=== PATIENT | female | born 1940 | race Caucasian/White ===

== ENCOUNTER 2020-08-17 20:00 | Inpatient (IN) ==
[2020-08-17 20:56] LABS: Basophils % 0.3 %; Eosinophils # 0.1 K/mcL (0.0-0.6); Eosinophils % 1.5 %; Hematocrit 32.1 % (35.3-44.9); Hemoglobin 10.7 g/dL (11.5-15.4); Immature Granulocytes % 0.6 % (0-4); Immature Platelets 4.4 % (1.1-6.1); Lymphocytes # 1.3 K/mcL (0.6-4.6); Lymphocytes % 18.9 %; Mean Corpuscular HGB Conc 33.3 g/dL (31.6-35.5); Mean Corpuscular Hemoglobin 30.1 pg (28.0-33.3); Mean Corpuscular Volume 90.2 fL (83.0-100.0); Mean Platelet Volume 10.7 fL (9.4-12.4); Monocytes # 0.4 K/mcL (0.0-1.3); Monocytes % 5.6 %; Neutrophils # 4.9 K/mcL (1.6-8.9); Platelet Count 129 K/mcL (140-400); Red Blood Count 3.56 M/mcL (3.82-4.97); Red Cell Distribution Width 15.7 % (11.5-14.5); Segmented Neutrophils % 73.1 %; White Blood Count 6.7 K/mcL (4.3-11.1)
[2020-08-17 21:00] LABS: Activated Partial Thrombo Time 57.9 Seconds (26.0-36.0)
[2020-08-17 21:06] LABS: INR 5.7; Prothrombin Time 63.3 Seconds (9.4-12.1)
[2020-08-17 21:20] LABS: Alanine Aminotransferase 15 Units/L (7-52); Albumin 3.8 g/dL (3.5-5.7); Albumin/Globulin Ratio 1.2 (1.1-2.2); Alkaline Phosphatase 60 Units/L (34-104); Aspartate Amino Transferase 20 Units/L (13-39); BUN/Creatinine Ratio 24 (6-26); Bilirubin,Direct 0.4 mg/dL (0.0-0.2); Bilirubin,Indirect 0.8 mg/dL (0.0-1.0); Bilirubin,Total 1.2 mg/dL (0.3-1.0); Blood Urea Nitrogen 20 mg/dL (8-23); Calcium 9.2 mg/dL (8.6-10.3); Carbon Dioxide 26 mEq/L (23-29); Chloride 102 mEq/L (98-107); Globulin 3.2 g/dL (2.4-3.5); Glucose 100 mg/dL (70-105); Lipase 4 Units/L (11-82); Osmolality,Calculated 291 (280-300); Potassium 3.3 mEq/L (3.5-5.1); Sodium 139 mEq/L (136-145); Troponin I 0.18 ng/mL (< 0.04); eGFR For African Americans > 60 (> 60); eGFR For Non-African Americans > 60 (> 60)
[2020-08-17] MEDS ORDERED: Furosemide 40 MG/4 ML VIAL IVP ONE (21:31)
[2020-08-17] MEDS ORDERED: Ondansetron ODT 4 MG TAB.RAPDIS SL PRN (22:01)
[2020-08-17] MEDS ORDERED: Aspirin 325 MG TABLET PO ONE (22:06)
[2020-08-17] MEDS ORDERED: Perflutren Lipid Microsphere 1.3 ML in 0.9 % Sodium Chloride 8.7 ML IVP PRN (22:11)
[2020-08-17] MEDS ORDERED: Isovue-370 500 ML BOTTLE IVP ONE (23:00)
[2020-08-18] MEDS: Metoprolol XL (24 HR) Succ 25 MG TAB.ER.24H PO SCH ×2 (01:06→09:08)
[2020-08-18 03:43] LABS: Hematocrit 31.7 % (35.3-44.9); Hemoglobin 10.6 g/dL (11.5-15.4); Mean Corpuscular HGB Conc 33.4 g/dL (31.6-35.5); Mean Corpuscular Hemoglobin 30.5 pg (28.0-33.3); Mean Corpuscular Volume 91.1 fL (83.0-100.0); Mean Platelet Volume 10.8 fL (9.4-12.4); Platelet Count 127 K/mcL (140-400); Red Blood Count 3.48 M/mcL (3.82-4.97); Red Cell Distribution Width 15.9 % (11.5-14.5)
[2020-08-18 03:57] LABS: BUN/Creatinine Ratio 24 (6-26); Blood Urea Nitrogen 21 mg/dL (8-23); Calcium 9.4 mg/dL (8.6-10.3); Carbon Dioxide 29 mEq/L (23-29); Chloride 100 mEq/L (98-107); Chol/HDL Ratio 2.6 (0-4.9); Cholesterol 120 mg/dL (< 200); Glucose 93 mg/dL (70-105); HDL Cholesterol 47 mg/dL (40-59); LDL Cholesterol,Calculated 53 mg/dL (< 100); Magnesium 1.4 mg/dL (1.6-2.6); Osmolality,Calculated 289 (280-300); Potassium 3.9 mEq/L (3.5-5.1); Sodium 138 mEq/L (136-145); Triglycerides 98 mg/dL (< 150); eGFR For African Americans > 60 (> 60); eGFR For Non-African Americans > 60 (> 60)
[2020-08-18 04:12] LABS: Prothrombin Time 69.8 Seconds (9.4-12.1)
[2020-08-18 04:13] LABS: INR 6.4
[2020-08-18] MEDS ORDERED: *HR* Phytonadione 10 MG/ML AMPUL SQ ONE (08:12)
[2020-08-18] MEDS: Aspirin 81 MG TAB.CHEW PO SCH (09:08)
[2020-08-18] MEDS: Furosemide 40 MG/4 ML VIAL IVP SCH ×2 (09:09→16:58)
[2020-08-18] MEDS: lisinopriL 20 MG TABLET PO SCH (11:49)
[2020-08-18] MEDS ORDERED: Warfarin perPT PO PRN (18:00)
[2020-08-18] MEDS: Nystatin Cream 15 GM TUBE TP SCH (21:57)
[2020-08-19 00:34] LABS: Bilirubin,Urine Negative (Negative); Blood,Urine Negative (Negative); Clarity,Urine Clear (Clear); Color,Urine Colorless (Yellow); Glucose,Urine (UA) Normal (Normal); Ketones,Urine Negative (Negative); Leukocyte Esterase,Urine Negative (Negative); Nitrite,Urine Negative (Negative); Protein,Urine Negative (Neg-Trace); Specific Gravity,Urine 1.012 (1.010-1.025); Urobilinogen,Urine Normal (Normal)
[2020-08-19 05:52] LABS: Basophils % 0.3 %; Eosinophils # 0.1 K/mcL (0.0-0.6); Eosinophils % 2.1 %; Hematocrit 32.9 % (35.3-44.9); Hemoglobin 10.7 g/dL (11.5-15.4); Immature Granulocytes % 0.3 % (0-4); Lymphocytes # 1.3 K/mcL (0.6-4.6); Lymphocytes % 20.6 %; Mean Corpuscular HGB Conc 32.5 g/dL (31.6-35.5); Mean Corpuscular Hemoglobin 29.7 pg (28.0-33.3); Mean Corpuscular Volume 91.4 fL (83.0-100.0); Mean Platelet Volume 10.7 fL (9.4-12.4); Monocytes # 0.5 K/mcL (0.0-1.3); Monocytes % 7.4 %; Neutrophils # 4.3 K/mcL (1.6-8.9); Platelet Count 130 K/mcL (140-400); Red Cell Distribution Width 16.1 % (11.5-14.5); Segmented Neutrophils % 69.3 %; White Blood Count 6.2 K/mcL (4.3-11.1)
[2020-08-19 06:07] LABS: Prothrombin Time 44.9 Seconds (9.4-12.1)
[2020-08-19 06:17] LABS: Calcium 8.9 mg/dL (8.6-10.3); Magnesium 1.7 mg/dL (1.6-2.6); Potassium 3.5 mEq/L (3.5-5.1)
[2020-08-19] MEDS ORDERED: Magnesium Oxide 400 MG TABLET PO ONE (07:14)
[2020-08-19] MEDS ORDERED: Furosemide 20 MG/2 ML VIAL IVP SCH ×2 (08:57→17:00)
[2020-08-19] MEDS: Metoprolol XL (24 HR) Succ 25 MG TAB.ER.24H PO SCH (09:04)
[2020-08-19] MEDS: lisinopriL 20 MG TABLET PO SCH (09:04)
[2020-08-19] MEDS: Aspirin 81 MG TAB.CHEW PO SCH (09:04)
[2020-08-19 09:22] LABS: Troponin I 4.24 ng/mL (< 0.04)
[2020-08-19] MEDS: Furosemide 40 MG/4 ML VIAL IVP SCH (09:48)
[2020-08-19] MEDS: Levothyroxine 25 MCG TABLET PO SCH (11:04)
[2020-08-19] MEDS: Nystatin Cream 15 GM TUBE TP SCH ×2 (11:04→21:28)
[2020-08-19 17:30] LABS: INR 2.3; Prothrombin Time 25.8 Seconds (9.4-12.1)
[2020-08-20 02:45] LABS: Basophils % 0.4 %; Eosinophils # 0.1 K/mcL (0.0-0.6); Eosinophils % 1.8 %; Hematocrit 32.4 % (35.3-44.9); Hemoglobin 10.4 g/dL (11.5-15.4); Immature Granulocytes % 0.4 % (0-4); Lymphocytes # 0.9 K/mcL (0.6-4.6); Lymphocytes % 17.7 %; Mean Corpuscular HGB Conc 32.1 g/dL (31.6-35.5); Mean Corpuscular Hemoglobin 29.9 pg (28.0-33.3); Mean Corpuscular Volume 93.1 fL (83.0-100.0); Mean Platelet Volume 10.3 fL (9.4-12.4); Monocytes # 0.4 K/mcL (0.0-1.3); Monocytes % 8.5 %; Neutrophils # 3.6 K/mcL (1.6-8.9); Platelet Count 119 K/mcL (140-400); Red Blood Count 3.48 M/mcL (3.82-4.97); Red Cell Distribution Width 16.2 % (11.5-14.5); Segmented Neutrophils % 71.2 %
[2020-08-20 02:54] LABS: INR 1.8; Prothrombin Time 20.2 Seconds (9.4-12.1)
[2020-08-20 03:15] LABS: BUN/Creatinine Ratio 24 (6-26); Blood Urea Nitrogen 25 mg/dL (8-23); Calcium 8.5 mg/dL (8.6-10.3); Carbon Dioxide 35 mEq/L (23-29); Chloride 102 mEq/L (98-107); Glucose 106 mg/dL (70-105); Osmolality,Calculated 301 (280-300); Potassium 3.8 mEq/L (3.5-5.1); Sodium 143 mEq/L (136-145); Troponin I 4.66 ng/mL (< 0.04); eGFR For African Americans > 60 (> 60); eGFR For Non-African Americans 52 (> 60)
[2020-08-20] MEDS: Acetaminophen 325 MG TABLET PO PRN (06:16)
[2020-08-20] MEDS: Levothyroxine 25 MCG TABLET PO SCH (06:17)
[2020-08-20] MEDS: Nystatin Cream 15 GM TUBE TP SCH (09:10)
[2020-08-20] MEDS: Metoprolol XL (24 HR) Succ 25 MG TAB.ER.24H PO SCH (09:10)
[2020-08-20] MEDS: Aspirin 81 MG TAB.CHEW PO SCH (09:10)
[2020-08-20] MEDS: lisinopriL 20 MG TABLET PO SCH (09:10)
[2020-08-20] MEDS: Furosemide 20 MG/2 ML VIAL IVP SCH (09:10)
[2020-08-20] MEDS ORDERED: *HR* Heparin 5,000 UNIT/ML VIAL IVP ONE (10:12)
[2020-08-20] MEDS ORDERED: *HR* Heparin 5,000 UNIT/ML VIAL IVP PRN ×2 (10:12)
[2020-08-20] MEDS: Heparin 25,000UNIT/250ML 1/2NS 25,000 UNIT/250 ML IV.SOLN IVC SCH (10:29)
[2020-08-21] MEDS: Nystatin Cream 15 GM TUBE TP SCH ×3 (06:52→21:04)
[2020-08-21] MEDS: Levothyroxine 25 MCG TABLET PO SCH (06:57)
[2020-08-21 07:47] LABS: Basophils % 0.5 %; Eosinophils # 0.2 K/mcL (0.0-0.6); Eosinophils % 2.9 %; Hematocrit 31.9 % (35.3-44.9); Hemoglobin 10.3 g/dL (11.5-15.4); Immature Granulocytes % 0.2 % (0-4); Lymphocytes # 1.8 K/mcL (0.6-4.6); Lymphocytes % 32.7 %; Mean Corpuscular HGB Conc 32.3 g/dL (31.6-35.5); Mean Corpuscular Hemoglobin 30.5 pg (28.0-33.3); Mean Corpuscular Volume 94.4 fL (83.0-100.0); Mean Platelet Volume 10.6 fL (9.4-12.4); Monocytes # 0.6 K/mcL (0.0-1.3); Platelet Count 126 K/mcL (140-400); Red Blood Count 3.38 M/mcL (3.82-4.97); Red Cell Distribution Width 16.5 % (11.5-14.5); Segmented Neutrophils % 53.7 %; White Blood Count 5.5 K/mcL (4.3-11.1)
[2020-08-21] MEDS: Heparin 25,000UNIT/250ML 1/2NS 25,000 UNIT/250 ML IV.SOLN IVC SCH (08:01)
[2020-08-21 08:06] LABS: INR 1.3
[2020-08-21] MEDS: Aspirin 81 MG TAB.CHEW PO SCH (08:40)
[2020-08-21] MEDS: Metoprolol XL (24 HR) Succ 25 MG TAB.ER.24H PO SCH (08:41)
[2020-08-21] MEDS: lisinopriL 20 MG TABLET PO SCH (08:41)
[2020-08-21] MEDS: Furosemide 20 MG/2 ML VIAL IVP SCH (08:41)
[2020-08-21 08:52] LABS: BUN/Creatinine Ratio 26 (6-26); Blood Urea Nitrogen 25 mg/dL (8-23); Calcium 8.6 mg/dL (8.6-10.3); Carbon Dioxide 33 mEq/L (23-29); Chloride 101 mEq/L (98-107); Glucose 85 mg/dL (70-105); Osmolality,Calculated 298 (280-300); Potassium 4.1 mEq/L (3.5-5.1); Sodium 142 mEq/L (136-145); eGFR For African Americans > 60 (> 60); eGFR For Non-African Americans 55 (> 60)
[2020-08-21] MEDS ORDERED: Nitroglycerin 1,000 MCG/10 ML VIAL IV ONE (11:30)
[2020-08-21] MEDS ORDERED: Heparin 1,000 UNITS/500 mL 500 ML ONE (11:30)
[2020-08-21] MEDS ORDERED: 0.9 % Sodium Chloride 2,000 ML ONE (11:30)
[2020-08-21] MEDS ORDERED: ISOVUE-370 200 ML INFUS..BTL ONE (11:30)
[2020-08-21] MEDS ORDERED: *HR* Heparin 10,000 UNIT/10 ML VIAL ONE (11:30)
[2020-08-21] MEDS ORDERED: *HR* FentaNYL (PF) 100 MCG/2 ML VIAL ONE (11:46)
[2020-08-21] MEDS ORDERED: *HR* Midazolam HCl 2 MG/2 ML VIAL ONE (11:46)
[2020-08-21] MEDS: Acetaminophen 325 MG TABLET PO PRN (13:35)
[2020-08-21] MEDS: Furosemide 20 MG TABLET PO SCH (15:56)
[2020-08-22] MEDS: Levothyroxine 25 MCG TABLET PO SCH (05:53)
[2020-08-22] MEDS: lisinopriL 20 MG TABLET PO SCH (08:04)
[2020-08-22] MEDS: Metoprolol XL (24 HR) Succ 25 MG TAB.ER.24H PO SCH (08:04)
[2020-08-22] MEDS: Furosemide 20 MG TABLET PO SCH ×2 (08:05→16:23)
[2020-08-22] MEDS: Nystatin Cream 15 GM TUBE TP SCH ×2 (08:05→20:38)
[2020-08-22] MEDS: Heparin 25,000UNIT/250ML 1/2NS 25,000 UNIT/250 ML IV.SOLN IVC SCH (11:07)
[2020-08-23 04:33] LABS: Basophils % 0.6 %; Eosinophils # 0.3 K/mcL (0.0-0.6); Hematocrit 31.3 % (35.3-44.9); Hemoglobin 9.9 g/dL (11.5-15.4); Immature Granulocytes % 0.4 % (0-4); Immature Platelets 3.4 % (1.1-6.1); Lymphocytes # 1.7 K/mcL (0.6-4.6); Lymphocytes % 32.3 %; Mean Corpuscular HGB Conc 31.6 g/dL (31.6-35.5); Mean Corpuscular Hemoglobin 29.5 pg (28.0-33.3); Mean Corpuscular Volume 93.2 fL (83.0-100.0); Mean Platelet Volume 10.4 fL (9.4-12.4); Monocytes # 0.5 K/mcL (0.0-1.3); Monocytes % 8.5 %; Neutrophils # 2.9 K/mcL (1.6-8.9); Platelet Count 133 K/mcL (140-400); Red Blood Count 3.36 M/mcL (3.82-4.97); Red Cell Distribution Width 15.8 % (11.5-14.5); Segmented Neutrophils % 53.2 %; White Blood Count 5.4 K/mcL (4.3-11.1)
[2020-08-23 04:52] LABS: Calcium 8.5 mg/dL (8.6-10.3); Potassium 4.1 mEq/L (3.5-5.1)
[2020-08-23] MEDS: Heparin 25,000UNIT/250ML 1/2NS 25,000 UNIT/250 ML IV.SOLN IVC SCH ×2 (05:22→18:28)
[2020-08-23] MEDS: Levothyroxine 25 MCG TABLET PO SCH (05:23)
[2020-08-23] MEDS: lisinopriL 20 MG TABLET PO SCH (08:26)
[2020-08-23] MEDS: Nystatin Cream 15 GM TUBE TP SCH ×2 (08:26→20:36)
[2020-08-23] MEDS: Metoprolol XL (24 HR) Succ 25 MG TAB.ER.24H PO SCH (08:26)
[2020-08-23] MEDS: Furosemide 20 MG TABLET PO SCH ×2 (08:26→16:57)
[2020-08-24] MEDS: Heparin 25,000UNIT/250ML 1/2NS 25,000 UNIT/250 ML IV.SOLN IVC SCH (00:03)
[2020-08-24 01:56] LABS: Basophils % 0.6 %; Eosinophils # 0.2 K/mcL (0.0-0.6); Eosinophils % 4.5 %; Hematocrit 31.7 % (35.3-44.9); Hemoglobin 10.2 g/dL (11.5-15.4); Immature Granulocytes % 0.2 % (0-4); Lymphocytes # 1.9 K/mcL (0.6-4.6); Lymphocytes % 35.8 %; Mean Corpuscular HGB Conc 32.2 g/dL (31.6-35.5); Mean Corpuscular Hemoglobin 29.9 pg (28.0-33.3); Mean Platelet Volume 10.6 fL (9.4-12.4); Monocytes # 0.4 K/mcL (0.0-1.3); Monocytes % 7.3 %; Neutrophils # 2.8 K/mcL (1.6-8.9); Platelet Count 133 K/mcL (140-400); Red Blood Count 3.41 M/mcL (3.82-4.97); Red Cell Distribution Width 15.9 % (11.5-14.5); Segmented Neutrophils % 51.6 %; White Blood Count 5.3 K/mcL (4.3-11.1)
[2020-08-24 01:58] LABS: BUN/Creatinine Ratio 30 (6-26); Blood Urea Nitrogen 29 mg/dL (8-23); Calcium 8.6 mg/dL (8.6-10.3); Carbon Dioxide 30 mEq/L (23-29); Chloride 99 mEq/L (98-107); Glucose 101 mg/dL (70-105); Osmolality,Calculated 290 (280-300); Sodium 137 mEq/L (136-145); eGFR For African Americans > 60 (> 60); eGFR For Non-African Americans 56 (> 60)
[2020-08-24] MEDS: Levothyroxine 25 MCG TABLET PO SCH (05:11)
[2020-08-24 07:06] VITALS: BP 139/91
[2020-08-24] MEDS: Metoprolol XL (24 HR) Succ 25 MG TAB.ER.24H PO SCH (09:25)
[2020-08-24] MEDS: lisinopriL 20 MG TABLET PO SCH (09:25)
[2020-08-24] MEDS: Furosemide 20 MG TABLET PO SCH (09:25)
[2020-08-24] MEDS: Nystatin Cream 15 GM TUBE TP SCH (09:25)
== END 2020-08-24 11:18 | disposition home or self-care (01) | DRG 280 ==
LOC: EMEROOARM 20:00 → 2ANU 20:00 → SUATTDRO 22:23 → 2ANU 23:02 → SUATTDRO 08-18 13:46
PROVIDERS: ADMIT Internal Medicine; ATTEND Student in an Organized Health Care Education/Training Program

== ENCOUNTER 2021-03-11 12:26 | Inpatient (IN) ==
[2021-03-11] MEDS ORDERED: Ondansetron 4 MG/2 ML VIAL IVP ONE (12:34)
[2021-03-11] MEDS ORDERED: 0.9 % Sodium Chloride 1,000 ML IVC ONE (12:34)
[2021-03-11 13:41] LABS: Basophils % 0.2 %; Eosinophils % 0.6 %; Hematocrit 32.8 % (35.3-44.9); Hemoglobin 10.4 g/dL (11.5-15.4); Immature Granulocytes % 0.4 % (0-4); Lymphocytes # 0.9 K/mcL (0.6-4.6); Lymphocytes % 17.7 %; Mean Corpuscular HGB Conc 31.7 g/dL (31.6-35.5); Mean Corpuscular Hemoglobin 27.6 pg (28.0-33.3); Mean Platelet Volume 10.7 fL (9.4-12.4); Monocytes # 0.2 K/mcL (0.0-1.3); Monocytes % 3.1 %; Neutrophils # 3.8 K/mcL (1.6-8.9); Red Blood Count 3.77 M/mcL (3.82-4.97); Red Cell Distribution Width 17.5 % (11.5-14.5); White Blood Count 4.9 K/mcL (4.3-11.1)
[2021-03-11 13:43] LABS: Platelet Count 95 K/mcL (140-400)
[2021-03-11 13:47] LABS: Bacteria,Urine Few per hpf (None-Few); Bilirubin,Urine Negative (Negative); Blood,Urine Trace (Negative); Clarity,Urine Turbid (Clear); Color,Urine Yellow (Yellow); Glucose,Urine (UA) Normal (Normal); Hyaline Casts,Urine Few per lpf (None Seen); Ketones,Urine Negative (Negative); Leukocyte Esterase,Urine Large (Negative); Nitrite,Urine Negative (Negative); PH,Urine 5.5 pH Units (5.0-8.0); Protein,Urine Trace mg/dL (Neg-Trace); RBC,Urine 0-3 per hpf (0-3); Specific Gravity,Urine 1.014 (1.010-1.025); Squamous Epithelial Cell,Urine Few per hpf (None-Few); Urobilinogen,Urine Normal (Normal); WBC,Urine TNTC per hpf (0-3)
[2021-03-11 14:04] LABS: Alanine Aminotransferase 9 Units/L (7-52); Albumin 3.6 g/dL (3.5-5.7); Albumin/Globulin Ratio 1.2 (1.1-2.2); Alkaline Phosphatase 57 Units/L (34-104); Aspartate Amino Transferase 14 Units/L (13-39); BUN/Creatinine Ratio 50 (6-26); Bilirubin,Total 0.6 mg/dL (0.3-1.0); Blood Urea Nitrogen 103 mg/dL (8-23); Calcium 8.9 mg/dL (8.6-10.3); Carbon Dioxide 28 mEq/L (23-29); Chloride 99 mEq/L (98-107); Globulin 3.1 g/dL (2.4-3.5); Glucose 156 mg/dL (70-105); Magnesium 2.2 mg/dL (1.6-2.6); Osmolality,Calculated 319 (280-300); Phosphorous 4.6 mg/dL (2.7-4.5); Sodium 137 mEq/L (136-145); Total Protein 6.7 g/dL (6.4-8.9); Troponin I < 0.03 ng/mL (< 0.04); eGFR For African Americans 28 (> 60); eGFR For Non-African Americans 23 (> 60)
[2021-03-11 14:17] LABS: Thyroid Stimulating Hormone 1.172 mcIU/mL (0.340-5.600)
[2021-03-11] MEDS ORDERED: cefTRIAXone 1,000 MG in Water for inj. (sterile) 10 ML IVP ONE (14:29)
[2021-03-11] MEDS ORDERED: 0.9 % Sodium Chloride 500 ML IVC ONE (14:39)
[2021-03-11] MEDS ORDERED: Naloxone 0.4 MG/ML INJ IVP PRN (16:52)
[2021-03-11] MEDS ORDERED: Melatonin 3 MG TABLET PO PRN (16:52)
[2021-03-11] MEDS ORDERED: Ondansetron 4 MG/2 ML VIAL IVP PRN (16:52)
[2021-03-11] MEDS ORDERED: 0.9 % Sodium Chloride 1,000 ML IVC SCH (17:00)
[2021-03-11] MEDS ORDERED: Warfarin perPT PO PRN (18:00)
[2021-03-11 19:12] LABS: INR 3.8; Prothrombin Time 42.3 Seconds (9.4-12.1)
[2021-03-11] MEDS: Acetaminophen 325 MG TABLET PO PRN (22:38)
[2021-03-12 03:57] LABS: Mean Corpuscular Volume 85.9 fL (83.0-100.0)
[2021-03-12 03:59] LABS: Hematocrit 28.7 % (35.3-44.9); Hemoglobin 9.6 g/dL (11.5-15.4); Immature Platelets 3.1 % (1.1-6.1); Mean Corpuscular HGB Conc 33.4 g/dL (31.6-35.5); Mean Corpuscular Hemoglobin 28.7 pg (28.0-33.3); Mean Platelet Volume 11.3 fL (9.4-12.4); Red Blood Count 3.34 M/mcL (3.82-4.97); Red Cell Distribution Width 17.5 % (11.5-14.5); White Blood Count 4.9 K/mcL (4.3-11.1)
[2021-03-12 04:10] LABS: Prothrombin Time 44.5 Seconds (9.4-12.1)
[2021-03-12 04:17] LABS: Calcium 8.8 mg/dL (8.6-10.3); Magnesium 2.1 mg/dL (1.6-2.6)
[2021-03-12] MEDS: Levothyroxine 25 MCG TABLET PO SCH (06:39)
[2021-03-12] MEDS ORDERED: 0.9 % Sodium Chloride 1,000 ML IVC SCH (07:30)
[2021-03-12] MEDS: cefTRIAXone 1,000 MG in Water for inj. (sterile) 10 ML IVP SCH (08:16)
[2021-03-13 05:01] LABS: Hematocrit 30.8 % (35.3-44.9); Mean Corpuscular Volume 89.3 fL (83.0-100.0); Red Blood Count 3.45 M/mcL (3.82-4.97)
[2021-03-13 05:03] LABS: Hemoglobin 9.7 g/dL (11.5-15.4); Mean Corpuscular HGB Conc 31.5 g/dL (31.6-35.5); Mean Corpuscular Hemoglobin 28.1 pg (28.0-33.3); Mean Platelet Volume 10.8 fL (9.4-12.4); White Blood Count 5.3 K/mcL (4.3-11.1)
[2021-03-13 05:18] LABS: Calcium 8.8 mg/dL (8.6-10.3); Potassium 4.3 mEq/L (3.5-5.1)
[2021-03-13 05:26] LABS: INR 4.5
[2021-03-13 05:27] LABS: Prothrombin Time 50.3 Seconds (9.4-12.1)
[2021-03-13] MEDS: Levothyroxine 25 MCG TABLET PO SCH (05:56)
[2021-03-13] MEDS: cefTRIAXone 1,000 MG in Water for inj. (sterile) 10 ML IVP SCH (09:19)
[2021-03-13] MEDS ORDERED: 0.9 % Sodium Chloride 1,000 ML IVC SCH (11:00)
[2021-03-13] MEDS: Acetaminophen 325 MG TABLET PO PRN (20:38)
[2021-03-14 01:38] LABS: INR 2.9; Prothrombin Time 32.7 Seconds (9.4-12.1)
[2021-03-14 01:55] LABS: Calcium 8.4 mg/dL (8.6-10.3); Potassium 3.9 mEq/L (3.5-5.1)
[2021-03-14] MEDS: Levothyroxine 25 MCG TABLET PO SCH (06:42)
[2021-03-14 10:46] VITALS: BP 125/87
[2021-03-14] MEDS ORDERED: Loratadine 10 MG TABLET PO SCH (11:00)
== END 2021-03-14 13:37 | disposition home health service (06) | DRG 682 ==
LOC: 2ANU 12:26 → EMEROOARM 12:26 → SUATTDRO 14:59 → 2ANU 15:38
PROVIDERS: ADMIT Internal Medicine; ATTEND Internal Medicine